=== PATIENT | female | born 1930 | race Caucasian/White ===

== ENCOUNTER 2017-01-16 08:46 | Emergency (ER) | payer MEDICARE ==
--- NOTE | 2017-01-16 09:08 | ERNOTE ---
Date of Service: 01/16/17 Time Seen by Provider: 01/16/17 09:15 Stated Complaint: fever Presenting Symptoms:: other - chills Exam Limitations: no limitations Immunizations: IMMUNIZATION HX Immunizations Up to Date Yes History of Influenza Vaccine No Hx Pneumococcal Vaccination Yes Allergies/Adverse Reactions: Allergies No Known Allergies Allergy (Unverified 01/16/17 08:52) Home Medications: HOME MEDICATIONS Allopurinol [Zyloprim (Allopurinol)] 100 mg PO DAILY 01/16/17 [Last Taken Unknown] Ciprofloxacin HCl [Cipro] 250 mg PO BID #10 tablet 01/16/17 [Last Taken Unknown] Furosemide [Lasix] 40 mg PO BID 01/16/17 [Last Taken Unknown] Metoprolol Succinate [Toprol Xl] 150 mg PO DAILY 01/16/17 [Last Taken Unknown] Potassium Chloride [K-Dur] 40 meq PO DAILY 01/16/17 [Last Taken Unknown] Warfarin Sodium 2 mg PO 01/16/17 [Last Taken Unknown] Warfarin Sodium [Coumadin] 1 mg PO 01/16/17 [Last Taken Unknown] Warfarin Sodium [Coumadin] 5 mg PO DAILY 01/16/17 [Last Taken Unknown] - History of Present Ilness Narrative: Patient's 86-year-old female who presents to the emergency room complaining of chills for the past 3 days. She reports a recent history of low grade fever in the 100 range. She also reports mild cough but no nasal congestion, nasal discharge, pleuritic symptoms, URINARY symptoms, diarrhea, Frequency/Possible Cause: Reports: no prior episodes Associated Symptoms: Reports: denies symptoms Review of Systems - Review of Systems Constitutional: Present: chills, malaise. Absent: recent illness, fever, diaphoresis, weakness, fatigue, weight loss, fussy, decreased activity level EYE: Present: see HPI ENT: Present: See HPI Respiratory: Present: See HPI Cardiology: Present: See HPI Gastrointestinal/Abdominal: Present: See HPI Genitourinary: Present: See HPI Skin: Present: See HPI Neurological: Present: See HPI Endocrine: Present: See HPI Hematologic/Lymphatic: Present: See HPI Psych: Present: See HPI - Social History Smoking Status: Never smoker - Immunizations Immunizations Up to Date: Yes Hx Pneumococcal Vaccination: Yes History of Influenza Vaccine: No Physical Exam - Physical Exam General Appearance: Present: wd/wn, alert, no apparent distress Head Exam: Present: normal inspection, no evidence of injury Eye Exam: Normal inspection: bilateral, PERRL: bilateral, EOMI: bilateral Ears, Nose, Throat: Present: normal ENT inspection, normal pharynx Neck: Present: normal inspection, nontender, supple, full range of motion Respiratory: Present: no respiratory distress, normal breath sounds Cardiovascular/Chest: Present: regular rate, rhythm, normal peripheral pulses Gastrointestinal/Abdominal: Present: normal bowel sounds, nontender, nondistended, no organomegaly Back Exam: Present: normal inspection, normal range of motion, no CVA tenderness , no vertebral tenderness Neurological Exam: Present: alert, oriented, normal mood/affect, no motor/ sensory deficits Skin Exam: Present: normal color, warm/dry Lymphatic Exam: Present: no adenopathy ED Progress - Results and Orders Patient's Lab Results:: I have reviewed the patient's lab results. - Vital Signs Patient's Vital Signs:: I have reviewed the patient's vital signs. Vital Signs: Vital Signs 01/16/17 08:50 Temperature 36.5 C Pulse Rate 98 Respiratory 14 Rate Blood Pressure 145/65 O2 Sat by Pulse 95 Oximetry - X-Ray X-Ray #1 X-Ray: chest Interpretation: Interp. by me, Reviewed by me - Progress/Reassessment Chief Complaint: Upper Respiratory Symptoms Progress:: Unchanged Progress Note-Subjective: 01/16/17 09:58 During my assessment. The patient complaint is mainly malaise and chills. White count is unremarkable for any infiltrates or consolidation. She has a mild elevation of white count at 11.6. Her potassium is low at 3.0. Her urinalysis appeared consistent with a runny tract infection versus asymptomatic bacteriuria. Proceed started on Cipro 250 mg by mouth twice a day for 5 days. Will follow- up with the primary care physician for further management. - Transfer of Care Expected Disposition: Discharge Departure Clinical Impression: Urinary tract infection Qualifiers: Urinary tract infection type: acute cystitis Hematuria presence: without hematuria Qualified Code(s): N30.00 - Acute cystitis without hematuria - Departure Disposition: Home self-care Condition: Stable Instructions: Urinary Tract Infection, Adult, [id number] Referrals: Kelvin Ellison MD [Primary Care Provider] - Prescriptions: Ciprofloxacin HCl [Cipro] 250 mg PO BID #10 tablet
[2017-01-16 09:11] LABS: Hematocrit 37.5 % (37.0-47.0); Hemoglobin 12.5 gm/dL (12.5-16.0); Mean Cell Volume 93.8 fl (78-100); Mean Corpuscular Hemoglobin 31.3 pg (27-31); Mean Corpuscular Hgb Conc 33.3 g/dl (32-36); Mean Platelet Volume 11.6 fl (6.0-9.5); Platelet Count 151 K/mm3 (150-450); Red Cell Distribution Width 13.8 % (11.5-14.0); White Blood Count 11.6 K/mm3 (4.0-10.5)
[2017-01-16 09:19] LABS: Urine Bilirubin Negative (NEGATIVE); Urine Blood 50 /ul (NEGATIVE); Urine Ketone Negative (NEGATIVE); Urine Protein 15 mg/dL (NEGATIVE); Urine Specific Gravity 1.015 SP.GR. (1.005-1.010); Urine Urobilinogen Normal (NORMAL)
[2017-01-16 09:21] LABS: Total Cells Counted 100
[2017-01-16 09:29] LABS: Urine Nitrite Positive (NEGATIVE)
[2017-01-16 09:30] LABS: Urine Appearance Cloudy; Urine Color Yellow
[2017-01-16 09:32] LABS: Urine Bacteria 3+; Urine RBC 0-5 /hpf (0-5)
[2017-01-16 09:32] LABS: Albumin * 3.2 gm/dl (3.4-5.0); Anion Gap 16.2 mmol/L (6.8-13.8); BUN/Creatinine Ratio 12.5 (9.0-21.6); Bilirubin, Total 1.6 mg/dL (0.0-1.1); Ca. Corrected For Albumin 8.8 mg/dL (8.4-10.2); Calcium * 8.5 mg/dL (7.9-10.9); Carbon Dioxide 25.8 mmol/L (24-32.6)
[2017-01-16 09:44] LABS: Atypical (Reactive) Lymph 1 % (0-2); Basophil 1 % (0-1); Lymphocyte 18 % (20-51); Monocyte 25 % (0-9); Neutrophil 55 % (42-75); Neutrophil # 6.4 K/mm3 (1.3-6.0)
[2017-01-16 09:45] LABS: Platelet Estimate Normal (NORMAL); RBC Morphology Normal (NORMAL)
[2017-01-16] MEDS ORDERED: POTASSIUM CHLORIDE 20 MEQ TABLET.SA PO ONE (10:04)
[2017-01-16] MEDS ORDERED: POTASSIUM CHLORIDE 20 MEQ TABLET.SA ONE (10:09)
[2017-01-16 10:13] VITALS: BP 150/65
== END 2017-01-16 10:15 | disposition home or self-care (01) ==
LOC: ER 08:46
DX: N30.00 Acute cystitis without hematuria (principal)